=== PATIENT | female | born 2000 | race Caucasian/White ===

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

== ENCOUNTER 2018-11-16 10:06 | Emergency (ER) | payer SELFPAY | END 2018-11-16 10:51 | disposition home or self-care (01) | LOC: FTE 10:06 | DX: K08.89 Other specified disorders of teeth and supporting structures (principal) | CPT/HCPCS: 99283 ==